=== PATIENT | male | born 1985 | race Caucasian/White ===

== ENCOUNTER 2023-01-26 10:00 | Emergency (ER) | payer OTHER ==
[2023-01-26] MEDS ORDERED: Pantoprazole 40 MG Vial IVPUSH ONE (10:44)
[2023-01-26] MEDS ORDERED: Ondansetron 4 MG/2 ML SDV IVPUSH ONE (10:44)
[2023-01-26] MEDS ORDERED: Sodium Chloride 0.9% 10 ML Syringe FLUSH PRN (10:44)
[2023-01-26] MEDS ORDERED: Sodium Chloride 0.9% 1,000 ML IV SCH ×2 (10:45→12:00)
[2023-01-26] MEDS ORDERED: Prochlorperazine 10 MG/2 ML SDV IVPUSH ONE (10:51)
[2023-01-26] MEDS ORDERED: Ondansetron 4 MG/2 ML SDV ONE (10:55)
[2023-01-26] MEDS ORDERED: Pantoprazole 40 MG Vial ONE (11:00)
[2023-01-26] MEDS ORDERED: Prochlorperazine 10 MG/2 ML SDV ONE (11:14)
[2023-01-26] MEDS ORDERED: Sodium Chloride 0.9% 10 ML Syringe FLUSH ONE (11:59)
[2023-01-26] MEDS ORDERED: Sodium Chloride 0.9% 100 ML IV ONE (11:59)
[2023-01-26] MEDS ORDERED: Iopamidol 612 MG/ML 100 ML Bottle IV SCH (12:00)
[2023-01-26] MEDS ORDERED: Lidocaine 2% Viscous Solution 15 ML UD PO ONE (12:28)
[2023-01-26] MEDS ORDERED: Aluminum Hydroxide/Magnesium Hydroxide/Simethicone Susp 30 ML Cup PO PRN (12:29)
[2023-01-26] MEDS ORDERED: Metoclopramide 10 MG/2 ML SDV IVPUSH ONE (12:42)
[2023-01-26] MEDS ORDERED: metroNIDAZOLE 500 MG Tab PO ONE (12:43)
[2023-01-26] MEDS ORDERED: Metoclopramide 10 MG/2 ML SDV ONE (12:58)
[2023-01-26] MEDS ORDERED: metroNIDAZOLE 500 MG Tab ONE (13:08)
== END 2023-01-26 13:35 | disposition home or self-care (01) ==
LOC: LB.ED 10:00
DX: K52.9 Noninfective gastroenteritis and colitis, unspecified (principal); K21.00 Gastro-esophageal reflux disease with esophagitis, without bleeding; K44.9 Diaphragmatic hernia without obstruction or gangrene; Z20.822 Contact with and (suspected) exposure to COVID-19
CPT/HCPCS: 36415; 74177; 80053; 81003; 83605; 83690; 85027; 96361; 96374; 96375; 99284-25; A9270-GY; C9113; J0780; J2405; J2765; J3490; J7030; U0002